=== PATIENT | male | born 1975 | race Caucasian/White ===

== ENCOUNTER → 2017-09-24 | Outpatient (CLI) | payer OTHER ==
[2017-09-24 12:38] LABS: BASO # 0.1 10^3/uL (0.0-0.2); BASO % 0.8 % (0.0-1.0); EOS # 0.3 10^3/uL (0.0-0.50); EOS % 3.9 % (0.0-3.0); HEMATOCRIT 44.6 % (42.0-52.0); HEMOGLOBIN 14.7 g/dl (13.5-17.5); IMMATURE GRANULOCYTE % 0.2 % (0-3.0); LYMPH % 34.3 % (24.0-44.0); MEAN CORPUSCULAR HEMOGLOBIN 28.7 pg (27.0-33.0); MEAN CORPUSCULAR VOLUME 87.1 fl (80.0-96.0); MONO # 0.6 10^3/uL (0.0-0.8); MONO % 6.3 % (0.0-5.0); NEUTROPHILS # 4.7 10^3/uL (1.8-7.7); NEUTROPHILS % 54.5 % (36.0-66.0); PLATELET COUNT, AUTOMATED 290 10^3/uL (150-450); RED BLOOD COUNT 5.12 10^6/uL (4.30-6.10); RED CELL DISTRIBUTION WIDTH 12.4 % (11.5-14.5); WHITE BLOOD COUNT 8.7 10^3/uL (4.0-10.0)
[2017-09-24 13:04] LABS: ALBUMIN 3.9 GM/DL (3.2-5.2); ALBUMIN/GLOBULIN RATIO 1.18 (1.00-1.93); ALKALINE PHOSPHATASE 82 U/L (45-117); ALT/SGPT 128 U/L (12-78); ANION GAP 6 MEQ/L (8-16); AST/SGOT 53 U/L (7-37); BILIRUBIN,TOTAL 0.7 MG/DL (0.2-1.0); BLOOD UREA NITROGEN 10 MG/DL (7-18); CALCIUM LEVEL 8.7 MG/DL (8.5-10.1); CARBON DIOXIDE LEVEL 29 MEQ/L (21-32); CHLORIDE LEVEL 105 MEQ/L (98-107); CHOLESTEROL LEVEL 227 MG/DL (<200); GLOMERULAR FILTRATION RATE > 60.0 (>60); GLUCOSE, FASTING 109 MG/DL (70-100); HDL CHOLESTEROL 39 MG/DL (>40); LDL CHOLESTEROL 160.4 MG/DL (<100); NON-HDL-C 188 MG/DL; POTASSIUM SERUM 4.5 MEQ/L (3.5-5.1); SODIUM LEVEL 140 MEQ/L (136-145); TOTAL PROTEIN 7.2 GM/DL (6.4-8.2); TRIGLYCERIDES LEVEL 138 MG/DL (<150)
== END ==
LOC: M WUC 09:44
DX: I10 Essential (primary) hypertension (principal); E78.00 Pure hypercholesterolemia, unspecified
CPT/HCPCS: 80053

== ENCOUNTER → 2018-03-26 | Outpatient (CLI) | payer OTHER ==
[2018-03-26 13:35] LABS: ALBUMIN 3.7 GM/DL (3.2-5.2); ALBUMIN/GLOBULIN RATIO 1.06 (1.00-1.93); ALKALINE PHOSPHATASE 82 U/L (45-117); ALT/SGPT 79 U/L (12-78); ANION GAP 9 MEQ/L (8-16); AST/SGOT 36 U/L (7-37); BILIRUBIN,TOTAL 0.7 MG/DL (0.2-1.0); BLOOD UREA NITROGEN 12 MG/DL (7-18); CALCIUM LEVEL 8.2 MG/DL (8.5-10.1); CARBON DIOXIDE LEVEL 27 MEQ/L (21-32); CHLORIDE LEVEL 103 MEQ/L (98-107); CHOLESTEROL LEVEL 242 MG/DL (<200); CHOLESTEROL RISK RATIO 5.627 (<5); CREATININE FOR GFR 0.78 MG/DL (0.70-1.30); GLOMERULAR FILTRATION RATE > 60.0 (>60); GLUCOSE, FASTING 108 MG/DL (70-100); HDL CHOLESTEROL 43 MG/DL (>40); LDL CHOLESTEROL 178 MG/DL (<100); NON-HDL-C 199 MG/DL; POTASSIUM SERUM 4.6 MEQ/L (3.5-5.1); SODIUM LEVEL 139 MEQ/L (136-145); TOTAL PROTEIN 7.2 GM/DL (6.4-8.2); TRIGLYCERIDES LEVEL 103 MG/DL (<150)
== END ==
LOC: M WUC 08:31
DX: E78.00 Pure hypercholesterolemia, unspecified (principal); I10 Essential (primary) hypertension
CPT/HCPCS: 80053

== ENCOUNTER → 2018-04-09 | Outpatient (CLI) | payer OTHER | LOC: M WUC 17:07 | DX: I10 Essential (primary) hypertension (principal) ==

== ENCOUNTER → 2019-03-08 | Outpatient (CLI) | payer OTHER ==
[2019-03-08 09:52] LABS: BASO # 0.1 10^3/uL (0.0-0.2); BASO % 0.6 % (0.0-1.0); EOS # 0.3 10^3/uL (0.0-0.5); EOS % 4.1 % (0.0-3.0); HEMATOCRIT 46.4 % (42.0-52.0); HEMOGLOBIN 15.3 g/dl (13.5-17.5); LYMPH # 2.5 10^3/uL (1.5-5.0); LYMPH % 32.1 % (24.0-44.0); MEAN CORPUSCULAR HEMOGLOBIN 29.7 pg (27.0-33.0); MEAN CORPUSCULAR VOLUME 90.1 fl (80.0-96.0); MONO # 0.5 10^3/uL (0.0-0.8); NEUTROPHILS # 4.3 10^3/uL (1.5-8.5); NEUTROPHILS % 55.9 % (36.0-66.0); PLATELET COUNT, AUTOMATED 254 10^3/uL (150-450); RED BLOOD COUNT 5.15 10^6/uL (4.30-6.10); WHITE BLOOD COUNT 7.7 10^3/uL (4.0-10.0)
[2019-03-08 10:29] LABS: HEMOGLOBIN A1c 5.7 %
[2019-03-08 10:45] LABS: ALBUMIN 3.8 GM/DL (3.2-5.2); ALT/SGPT 106 U/L (12-78); BILIRUBIN,TOTAL 0.6 MG/DL (0.2-1.0); BLOOD UREA NITROGEN 13 MG/DL (7-18); CALCIUM LEVEL 8.7 MG/DL (8.5-10.1); CARBON DIOXIDE LEVEL 32 MEQ/L (21-32); CHLORIDE LEVEL 104 MEQ/L (98-107); CHOLESTEROL LEVEL 231 MG/DL (<200); CREATININE FOR GFR 0.84 MG/DL (0.70-1.30); GLOMERULAR FILTRATION RATE > 60.0 (>60); GLUCOSE, FASTING 96 MG/DL (70-100); HDL CHOLESTEROL 44 MG/DL (>40); LDL CHOLESTEROL 158 MG/DL (<100); NON-HDL-C 187 MG/DL; POTASSIUM SERUM 4.2 MEQ/L (3.5-5.1); SODIUM LEVEL 140 MEQ/L (136-145); THYROID STIMULATING HORMONE 0.526 uIU/ML (0.358-3.740); TOTAL PROTEIN 6.9 GM/DL (6.4-8.2); TRIGLYCERIDES LEVEL 143 MG/DL (<150)
== END ==
LOC: M WUC 08:18
PROVIDERS: ATTEND Physician Assistant Medical
DX: I10 Essential (primary) hypertension (principal); E78.2 Mixed hyperlipidemia; E66.9 Obesity, unspecified; Z12.5 Encounter for screening for malignant neoplasm of prostate
CPT/HCPCS: 36415; 80053; 80061; 83036; 84439; 84443; 85025; G0103

== ENCOUNTER → 2019-03-31 | Outpatient (CLI) | payer OTHER ==
[2019-04-01 11:06] LABS: HEPATITIS A ANTIBODY IGM NEGATIVE (NEGATIVE); HEPATITIS B SURFACE ANTIBODY NEGATIVE (POSITIVE); HEPATITIS B SURFACE ANTIGEN NEGATIVE (NEGATIVE)
--- NOTE | 2019-04-01 13:20 | REP ---
Clinical: Elevated liver function tests. Technique: Real time vega scale ultrasound examination using curved array transducer. Findings: Liver is echogenic with decreased through transmission suggesting fatty infiltration. No focal hepatic lesion identified. The pancreas is incompletely evaluated due to interposed bowel gas but visualized portions appear normal. Gallbladder demonstrates multiple gallstones and layering sludge. No gallbladder wall thickening or pericholecystic fluid appreciated. Common bile duct is upper limits of normal and 7 mm. Right kidney is normal in reniform shape without hydronephrosis and measures 13.4 x 6.8 x 5.6 cm. No ascites. Impression: 1. Hepatic steatosis. 2. Cholelithiasis. Electronically Signed by Hakeem Soares MD 04/01/2019 01:11 P
[2019-04-06 08:19] LABS: HEPATITIS C QUANTITATION HCV Not Detected IU/mL (.)
== END ==
LOC: M RAD 07:48
PROVIDERS: ATTEND Physician Assistant Medical
DX: R94.5 Abnormal results of liver function studies (principal)

== ENCOUNTER → 2019-09-19 | Outpatient (REF) | payer OTHER ==
[2019-09-19 10:02] LABS: BASO # 0.1 10^3/uL (0.0-0.2); BASO % 0.8 % (0.0-1.0); EOS # 0.5 10^3/uL (0.0-0.5); EOS % 5.8 % (0.0-3.0); HEMATOCRIT 44.5 % (42.0-52.0); HEMOGLOBIN 15.2 g/dl (13.5-17.5); LYMPH # 2.6 10^3/uL (1.5-5.0); LYMPH % 33.8 % (24.0-44.0); MEAN CORPUSCULAR HEMOGLOBIN 30.2 pg (27.0-33.0); MEAN CORPUSCULAR HGB CONC 34.2 g/dl (32.0-36.5); MEAN CORPUSCULAR VOLUME 88.5 fl (80.0-96.0); MONO # 0.4 10^3/uL (0.0-0.8); MONO % 5.7 % (0.0-5.0); NEUTROPHILS # 4.2 10^3/uL (1.5-8.5); NEUTROPHILS % 53.5 % (36.0-66.0); PLATELET COUNT, AUTOMATED 276 10^3/uL (150-450); RED BLOOD COUNT 5.03 10^6/uL (4.30-6.10); WHITE BLOOD COUNT 7.8 10^3/uL (4.0-10.0)
[2019-09-19 10:26] LABS: ALBUMIN 3.8 GM/DL (3.2-5.2); ALT/SGPT 76 U/L (12-78); BILIRUBIN,TOTAL 0.6 MG/DL (0.2-1.0); BLOOD UREA NITROGEN 11 MG/DL (7-18); CALCIUM LEVEL 8.5 MG/DL (8.5-10.1); CARBON DIOXIDE LEVEL 26 MEQ/L (21-32); CHLORIDE LEVEL 104 MEQ/L (98-107); CREATININE FOR GFR 0.78 MG/DL (0.70-1.30); GLOMERULAR FILTRATION RATE > 60.0 (>60); GLUCOSE, FASTING 101 MG/DL (70-100); POTASSIUM SERUM 4.3 MEQ/L (3.5-5.1); SODIUM LEVEL 140 MEQ/L (136-145); TOTAL PROTEIN 7.1 GM/DL (6.4-8.2)
== END ==
LOC: M SFHCPLAZ 08:16
PROVIDERS: ATTEND Physician Assistant Medical
DX: R94.5 Abnormal results of liver function studies (principal); I10 Essential (primary) hypertension

== ENCOUNTER → 2020-11-15 | Outpatient (CLI) | payer OTHER ==
--- NOTE | 2020-11-15 10:08 | REP ---
INDICATION: CONTUSION COMPARISON: None. TECHNIQUE: Frontal view of the chest with multiple views of the right hemithorax. Five total views FINDINGS: Frontal view of the chest demonstrates no acute cardiopulmonary process, contusion, effusion, or pneumothorax. Nondisplaced posterior right 10th rib fracture. Remainder of the examination is essentially normal.. IMPRESSION: Nondisplaced posterior right 10th rib fracture. <Electronically signed by Hakeem Soares > 11/15/20 1000
== END ==
LOC: M WUC 09:22
PROVIDERS: ATTEND Physician Assistant
DX: S20.221A Contusion of right back wall of thorax, initial encounter (principal); W18.30XA Fall on same level, unspecified, initial encounter; Y92.009 Unspecified place in unspecified non-institutional (private) residence as the place of occurrence of the external cause

== ENCOUNTER → 2020-11-17 | Outpatient (CLI) | payer BC ==
[2020-11-17 10:58] LABS: BASO # 0.1 10^3/uL (0.0-0.2); BASO % 0.6 % (0.0-1.0); EOS # 0.5 10^3/uL (0.0-0.5); EOS % 4.4 % (0.0-3.0); HEMOGLOBIN 14.7 g/dl (13.5-17.5); LYMPH % 26.8 % (24.0-44.0); MEAN CORPUSCULAR HEMOGLOBIN 29.3 pg (27.0-33.0); MEAN CORPUSCULAR HGB CONC 32.7 g/dl (32.0-36.5); MEAN CORPUSCULAR VOLUME 89.6 fl (80.0-96.0); MONO # 0.7 10^3/uL (0.0-0.8); MONO % 6.4 % (2.0-8.0); NEUTROPHILS # 6.8 10^3/uL (1.5-8.5); NEUTROPHILS % 61.4 % (36.0-66.0); PLATELET COUNT, AUTOMATED 291 10^3/uL (150-450); RED BLOOD COUNT 5.02 10^6/uL (4.30-6.10)
[2020-11-17 11:39] LABS: ALBUMIN 3.8 GM/DL (3.2-5.2); ALT/SGPT 72 U/L (12-78); BILIRUBIN,TOTAL 0.5 MG/DL (0.2-1.0); BLOOD UREA NITROGEN 10 MG/DL (7-18); CALCIUM LEVEL 8.7 MG/DL (8.5-10.1); CARBON DIOXIDE LEVEL 28 MEQ/L (21-32); CHLORIDE LEVEL 103 MEQ/L (98-107); CHOLESTEROL LEVEL 199 MG/DL (<200); CHOLESTEROL RISK RATIO 4.853 (<5); CREATININE FOR GFR 0.66 MG/DL (0.70-1.30); GLOMERULAR FILTRATION RATE > 60.0 (>60); GLUCOSE, FASTING 94 MG/DL (70-100); HDL CHOLESTEROL 41 MG/DL (>40); LDL CHOLESTEROL 132 MG/DL (<100); NON-HDL-C 158 MG/DL; NT-PRO BNP 173 PG/ML (<125); POTASSIUM SERUM 4.6 MEQ/L (3.5-5.1); SODIUM LEVEL 137 MEQ/L (136-145); THYROID STIMULATING HORMONE 0.265 uIU/ML (0.358-3.740); TOTAL PROTEIN 7.2 GM/DL (6.4-8.2); TRIGLYCERIDES LEVEL 129 MG/DL (<150)
[2020-11-17 11:53] LABS: HEMOGLOBIN A1c 5.9 %
== END ==
LOC: M LAB 09:25
PROVIDERS: ATTEND Physician Assistant Medical
DX: E78.2 Mixed hyperlipidemia (principal); E66.9 Obesity, unspecified; R94.5 Abnormal results of liver function studies; R60.9 Edema, unspecified; I10 Essential (primary) hypertension

== ENCOUNTER 2021-05-12 01:02 | Emergency (ER) | payer BC ==
[~2021-05-12] VITALS: Ht 182.9 cm; Wt 131.8 kg
--- OUTSIDE RECORDS SUMMARY | 2021-05-12 01:09 | CCD ---
Author Author [facility] Organization [facility] Address Unknown Phone Unavailable Care Team Providers [employer] Name Role Phone Umesh Krystle Unavailable PROBLEMS Type Condition ICD9-CM Code [id number] Code Onset Dates Condition S tatus W/U Status Risk SNOMED Code Notes Problem Body mass index (BMI) of 38.0-38.9 in adult Z68.38 Active confirmed 738577875 Problem Obesity, unspecified E66.9 Active confirmed 395327560 Problem Elevated LFTs R94.5 Active confirmed 889064 001 Problem Colon cancer screening Z12.11 Active confirmed 682474157 Problem Prostate cancer screening Z12.5 Active confirmed 106808913 Problem Essential hypertension I10 Active confirmed 45512515 Problem Mixed hyperlipidemia E78.2 Active confirmed 197903202 ALLERGIES Allergen (clinical drug ingredient) Drug/Non Drug Allergy do cumented on EMR Reaction Allergy Type Onset Date Status atorvastatin Atorvastatin Calcium([facility] Code:[address]-77) Ang ioedema Drug Allergy Active ENCOUNTERS from 1974 to 2021-02-14 Encounter Location Date Provider Diagnosis [address] [phone] [place] [address] 08 Feb, 2021 Krystle Calvo Essential hypertension I10 IMMUNIZATIONS No Information SOCIAL HISTORY Tobacco Use: Social History Observation Description Date Details (start date - stop date) Former Smoker Sex Assigned At : Social History Observation Description Sex Assigned At Unknown Education: Question Answer Notes Level of Education: Not finished High School Audit Question Answer Notes Total Score: 8 Interpretation: Simple Advice Language: Question Answer Notes Languages spoken: Taiwanese Gnosticist: Question Answer Notes Gnosticist 33 None Sexual Hx: Question Answer Notes Had sex in the last 12 months (vaginal, oral, or anal)? Yes Have you ever had an STD? No with Women only Use protection? No Drug and Alcohol Question Answer Notes Total Score: 0 Interpretation: No problems reported Alcohol Screening: Question Answer Notes Did you have a drink containing alcohol in the past year? Ye s Points 1 Interpretation Negative How often did you have six or more drinks on one occas ion in the past year? Never (0 points) How many drinks did you have on a typica l day when you were drinking in the past year? 1 or 2 (0 points) How often did you have a drink containing alcohol in t he past year? Monthly or less (1 point) Tobacco Use: Question Answer Notes Are you a: former smoker How long has it been since you last smoked? > 10 years REASON FOR REFERRAL No Information VITAL SIGNS No information MEDICATIONS Medication SIG (Take, Route, Frequency, Duration) Notes Start Da te End Date Status Atenolol 25 MG 1 tablet Orally at bedtime Active Zetia 10 MG 1 tablet Orally Once a day for 90 days Active Lisinopril 40 MG 1 tablet Orally Once a day for 90 days Jan, Active PROCEDURES No Information RESULTS No Results REASON FOR VISIT lisinopril MEDICAL (GENERAL) HISTORY Type Description Date Medical History hypertension, essential Medical History hyperlipidemia 2B Surgical History Lt knee torn meniscus 2015 Goals Section No Information Health Concerns No Information MEDICAL EQUIPMENT No Information MENTAL STATUS No Information FUNCTIONAL STATUS No Information ASSESSMENTS Encounter Date Diagnosis Assessment Notes Treatment Notes Treatm ent Clinical Notes Feb, Essential hypertension (ICD-10 - I10) PLAN OF TREATMENT Medication Medication Name Sig Start Date Stop Date Atenolol 25 MG 1 tablet Orally at bedtime Lisinopril 40 MG 1 tablet Orally Once a day for 90 days Jan, Zetia 10 MG 1 tablet Orally Once a day for 90 days Next Appt Details Provider Name:Krystle Calvo, 917 10:30:00 AM, [address] [facility], , [place], [address], Insurance Providers Payer Name Payer Address Payer Phone Insured Name Patient Relati onship to Insured Coverage Start Date Coverage End Date [facility] FEDERAL [address] [address] [facility] [id number] LE[address] FIELDS self
--- OUTSIDE RECORDS SUMMARY | 2021-05-12 01:09 | CCD | Continuity of Care Document ---
Author Author Jonah COLUNGA Organization Unknown Address [address] [place] [address] [place] [address] Phone [phone] Care Team Providers Care Kettle Operator Name Role Phone Krystle Calvo [phone] Problems Description No Information Available Social History Type Date Description Comments Sex Unknown ETOH Use Occasionally consumes alcohol Tobacco Use Start: Unknown End: Unknown Patient is a former smoker quit at 17 years old Tobacco Use Start: Unknown The patient has never vaped Allergies and adverse reactions Description No Known Drug Allergies Medications Active Medications SIG Qnty Indications Ordering Provide r Date Lisinopril Unknown Amlodipine Besylate Unknown Atenolol Unknown Ezetimibe Unknown Tylenol 9:00 am today Unknown Vicks Dayquil Cold & Flu Unknown Immunizations Description No Information Available Vital Signs Date Vital Result Comment 11/14/2020 5:35pm BP Systolic 137 mmHg BP Diastolic 89 mmHg Heart Rate 87 /min Respiratory Rate 15 /min O2 % BldC Oximetry 95 % Body Temperature 98.7 F Weight 280.00 lb Height 72 inches 6'0" BMI (Body Mass Index) 38.0 kg/m2 Results Description No Information Available Procedures Date Code Description Status 11/14/2020 81406 Office/Outpatient New Low MDM 30 -44 Minutes Completed Medical Devices Description No Information Available Encounters Type Date Location Provider Dx Diagnosis Office Visit 11/14/2020 5:05p Main Office Jluis Fishman S2 0.221A Contusion of right back wall of thorax, initial encounter Assessments Date Code Description Provider 03/29/2021 U07.1 Covid-19 LOUISE Watson 11/14/2020 S20.221A Contusion of right back wall of thorax, initial encounter Jluis Fishman Plan of Treatment No Information Available Functional Status Description No Information Available Mental Status Description No Information Available Referrals Description No Information Available
--- OUTSIDE RECORDS SUMMARY | 2021-05-12 01:09 | CCD ---
Author Author [facility] Organization [facility] Address Unknown Phone Unavailable Care Team Providers Care Event Management Consultant Name Role Phone Krystle Calvo Unavailable PROBLEMS Type Condition ICD9-CM Code BST84-FB Code Onset Dates Condition S tatus W/U Status Risk SNOMED Code Notes Problem Body mass index (BMI) of 38.0-38.9 in adult Z68.38 Active confirmed 816777127 Problem Obesity, unspecified E66.9 Active confirmed 174159315 Problem Elevated LFTs R94.5 Active confirmed 172618 001 Problem Colon cancer screening Z12.11 Active confirmed 256754251 Problem Prostate cancer screening Z12.5 Active confirmed 097324049 Problem Essential hypertension I10 Active confirmed 36590565 Problem Mixed hyperlipidemia E78.2 Active confirmed 388148477 ALLERGIES Allergen (clinical drug ingredient) Drug/Non Drug Allergy do cumented on EMR Reaction Allergy Type Onset Date Status atorvastatin Atorvastatin Calcium([facility] Code:[address]-48) Ang ioedema Drug Allergy Active ENCOUNTERS from 1974 to 2021-03-25 Encounter Location Date Provider Diagnosis [address] [phone] [place] [address] 18 Mar, 2021 Krystle Umesh Essential hypertension I10 IMMUNIZATIONS Vaccine Route Administration Date Status COVID-19 dose #2 given elsewhere Unspecified Unknown Feb Administered COVID-19 dose #1 given elsewhere Unspecified Unknown Feb Administered SOCIAL HISTORY Tobacco Use: Social History Observation Description Date Details (start date - stop date) Former Smoker Sex Assigned At : Social History Observation Description Sex Assigned At Unknown Education: Question Answer Notes Level of Education: Not finished High School Audit Question Answer Notes Total Score: 1 Interpretation: Alcohol Education Language: Question Answer Notes Languages spoken: Spanish Episcopal: Question Answer Notes Episcopal 33 None Sexual Hx: Question Answer Notes [...] Notes Start Da te End Date Status Lisinopril 40 MG 1 tablet Orally Once a day for 30 day(s) Active Atenolol 25 MG 30 Orally at bedtime for 90 days Active Zetia 10 MG 1 tablet Orally Once a day for 90 days Active PROCEDURES No Information RESULTS No Results REASON FOR VISIT refill MEDICAL (GENERAL) HISTORY Type Description Date Medical History hypertension, essential Medical History hyperlipidemia 2B Surgical History Lt knee torn meniscus 2015 Goals Section No Information Health Concerns No Information MEDICAL EQUIPMENT No Information MENTAL STATUS No Information FUNCTIONAL STATUS No Information ASSESSMENTS Encounter Date Diagnosis Assessment Notes Treatment Notes Treatm ent Clinical Notes Mar, Essential hypertension (ICD-10 - I10) PLAN OF TREATMENT Medication Medication Name Sig Start Date Stop Date Atenolol 25 MG 30 Orally at bedtime for 90 days Lisinopril 40 MG 1 tablet Orally Once a day for 30 day(s) Next Appt Details Provider Name:Krystle Calvo, - 07:30:00 AM, [address] [facility], , [place], [address], Insurance Providers Payer Name Payer Address Payer Phone Insured Name Patient Relati onship to Insured Coverage Start Date Coverage End Date [facility] FEDERAL [address] [address] [facility] [id number] LE[address] FIELDS self
--- OUTSIDE RECORDS SUMMARY | 2021-05-12 01:09 | CCD ---
Author Author [facility] Organization [facility] Address Unknown Phone Unavailable Care Team Providers Care Sap Senior Developer Name Role Phone Krystle Calvo Unavailable PROBLEMS Type Condition ICD9-CM Code LLV10-JB Code Onset Dates Condition S tatus W/U Status Risk SNOMED Code Notes Problem Body mass index (BMI) of 38.0-38.9 in adult Z68.38 Active confirmed 301393722 Problem Obesity, unspecified E66.9 Active confirmed 753644191 Problem Elevated LFTs R94.5 Active confirmed 846877 001 Problem Colon cancer screening Z12.11 Active confirmed 130687622 Problem Prostate cancer screening Z12.5 Active confirmed 917063871 Problem Essential hypertension I10 Active confirmed 14065970 Problem Mixed hyperlipidemia E78.2 Active confirmed 196644432 ALLERGIES Allergen (clinical drug ingredient) Drug/Non Drug Allergy do cumented on EMR Reaction Allergy Type Onset Date Status atorvastatin Atorvastatin Calcium([facility] Code:[address]-69) Ang ioedema Drug Allergy Active ENCOUNTERS from 1974 to 2021-02-27 Encounter Location Date Provider Diagnosis [address] [phone] [place] [address] 17 Feb, 2021 Krystle Delonmaggykera Essential hypertension I10 ; Edema, unspecified type R60.9 ; Obesity, unspecified E66.9 and Prostate cancer screening Z12.5 IMMUNIZATIONS Vaccine Route Administration Date Status COVID-19 [...] Education Language: Question Answer Notes Languages spoken: Khmer Taoism: Question Answer Notes Taoism 33 None Sexual Hx: Question Answer Notes [...] REASON FOR REFERRAL No Information VITAL SIGNS Weight 296 lbs Feb, Height 72 in Feb, BMI 40.14 kg/m2 Feb, Heart Rate 88 /min Feb, Respiratory Rate 20 /min Feb, Temperature 97.9 degrees Fahrenheit Feb, Oximetry 97 Feb, Blood pressure systolic 110 mm Hg Feb, Blood pressure diastolic 80 mm Hg Feb, MEDICATIONS Medication SIG (Take, Route, Frequency, Duration) Notes Start Da te End Date Status Atenolol 25 MG 30 Orally at bedtime for 30 Days Active Lisinopril 40 MG 1 tablet Orally Once a day for 30 day(s) Active Zetia 10 MG 1 tablet Orally Once a day for 90 days Active PROCEDURES No Information RESULTS No Results REASON FOR VISIT 3 Weeks f/u for bp MEDICAL (GENERAL) HISTORY Type Description Date Medical History hypertension, essential Medical History hyperlipidemia 2B Surgical History Lt knee torn meniscus 2015 Goals Section No Information Health Concerns No Information MEDICAL EQUIPMENT No Information MENTAL STATUS No Information FUNCTIONAL STATUS No Information ASSESSMENTS Encounter Date Diagnosis Assessment Notes Treatment Notes Treatm ent Clinical Notes Feb, Essential hypertension (ICD-10 - I10) Controlled, on lisinopril to 40mg & cont. atenolol 25mg qam 01/2021 stopped amlod to 2.5 mg, salt restriction Feb, Edema, unspecified type (ICD-10 - R60.9) stopped amlod. & resolved Feb, Obesity, unspecified (ICD-10 - E66.9) wt. 296 lb.s/BMI 40 Feb, Prostate cancer screening (ICD-10 - Z12.5) 03/2019 psa 0.35 Feb, Other 30" chart revie w, orders/plans, h&p PLAN OF TREATMENT Medication Medication Name Sig Start Date Stop Date Lisinopril 40 MG 1 tablet Orally Once a day for 30 day(s) Atenolol 25 MG 30 Orally at bedtime for 30 Days Treatment Notes Assessment Notes Clinical Notes Essential hypertension Controlled, on li sinopril to 40mg & cont. atenolol 25mg qa stopped amlod to 2.5 mg,salt restriction Edema, unspecified type stopped amlod. & resolved Obesity, unspecified wt. 296 lb.s/BMI 40 Prostate cancer screening 03/2019 psa 0. 35 Future Test Test Name Order Date CBC with Differential [id number] Comprehensive Metabolic Profile (CMP) [id number] NT-PRO BNP [id number] PSA SCREENING [id number] Next Appt Details 4 Months cSS Reason: Provider Name:Krystle Calvo, 06-25 07:30:00 AM, [address] [facility], , [place], [address], Insurance Providers Payer Name Payer Address Payer Phone Insured Name Patient Relati onship to Insured Coverage Start Date Coverage End Date [facility] FED[facility] [address] [address] [facility] [address] LEOL[place] FIELDS self
--- OUTSIDE RECORDS SUMMARY | 2021-05-12 01:09 | CCD ---
Author Author [facility] Organization [facility] Address Unknown Phone Unavailable Care Team Providers Care Executive Meeting Manager Name Role Phone SRI HOOKS PA Unavailable Unavailable JESSEE, SRI PA Unavailable Unavailable JESSEE, SRI PA Unavailable Unavailable JESSEE, SRI PA Unavailable Unavailable JESSEE, SRI PA Unavailable Unavailable JESSEE, SRI PA Unavailable Unavailable JESSEE, SRI PA Unavailable Unavailable JESSEE, SRI PA Unavailable Unavailable JESSEE, SRI PA Unavailable Unavailable JESSEE, SRI PA Unavailable Unavailable JESSEE, SRI PA Unavailable Unavailable JESSEE, SRI PA Unavailable Unavailable JESSEE, SRI PA Unavailable Unavailable JESSEE, SRI PA Unavailable Unavailable JESSEE, SRI PA Unavailable Unavailable JESSEE, SRI PA Unavailable Unavailable JESSEE, SRI PA Unavailable Unavailable JESSEE, SRI PA Unavailable Unavailable JESSEE, SRI PA Unavailable Unavailable JESSEE, SRI PA Unavailable Unavailable JESSEE, SRI PA Unavailable Unavailable JESSEE, SRI PA Unavailable Unavailable JESSEE, SRI PA Unavailable Unavailable JESSEE, SRI PA Unavailable Unavailable JESSEE, SRI PA Unavailable Unavailable JESSEE, SRI PA Unavailable Unavailable JESSEE, SRI PA Unavailable Unavailable JESSEE, SRI PA Unavailable Unavailable JESSEE, SRI PA Unavailable Unavailable JESSEE, SRI PA Unavailable Unavailable JESSEE, SRI PA Unavailable Unavailable JESSEE, SRI PA Unavailable Unavailable JESSEE, SRI PA Unavailable Unavailable JESSEE, SRI PA Unavailable Unavailable JESSEE, SRI PA Unavailable Unavailable JESSEE, SRI PA Unavailable Unavailable Re-disclosure Warning The records that you are about to access may contain information from federally-assisted alcohol or drug abuse programs. If such information is present, then the following federally mandated warning applies: This information has been disclosed to you from records protected by federal confidentiality rules (42 CFR part 2). The federal rules prohibit you from making any further disclosure of this information unless further disclosure is expressly permitted by the written consent of the person to whom it pertains or as otherwise permitted by 42 CFR part 2. A general authorization for the release of medical or other information is NOT sufficient for this purpose. The Federal rules restrict any use of the information to criminally investigate or prosecute any alcohol or drug abuse patient.The records that you are about to access may contain highly sensitive health information, the redisclosure of which is protected by Article 27-F of the [facility] Public Health law. If you continue you may have access to information: Regarding HIV / AIDS; Provided by facilities licensed or operated by the [facility] Office of Mental Health; or Provided by the [facility] Office for People With Developmental Disabilities. If such information is present, then the following [facility] mandated warning applies: This information has been disclosed to you from confidential records which are protected by state law. State law prohibits you from making any further disclosure of this information without the specific written consent of the person to whom it pertains, or as otherwise permitted by law. Any unauthorized further disclosure in violation of state law may result in a fine or intermediate sentence or both. A general authorization for the release of medical or other information is NOT sufficient authorization for further disc losure. Encounters Encounter Providers Location Date Indications Data Source(s ) Unknown [address] [facility] [address] 03/25/2021 12:00:00 AM EDT eCW1 ([facility]) [place]patient [address] [facility] [address] 02/22/2021 12:00:00 AM EDT eCW1 ([facility]) [place] [address] [facility] [address] 02/13/2021 12:00:00 AM EDT eCW1 ([facility]) [place] [address] [facility] [address] 02/07/2021 12:00:00 AM EDT eCW1 ([facility]) [place] [address] [facility] [address] 01/11/2021 12:00:00 AM EDT eCW1 ([facility]) [place] [address] [facility] [address] 12/31/2020 12:00:00 AM EDT eCW1 ([facility]) [place] [address] [facility] [address] 12/19/2020 12:00:00 AM EDT eCW1 ([facility]) [place] [address] [facility] [address] 11/23/2020 12:00:00 AM EDT eCW1 ([facility]) [place] [address] [facility] [address] 11/21/2020 12:00:00 AM EDT eCW1 ([facility]) [place] [address] [facility] [place] [address] 11/15/2020 12:00:00 AM EDT eCW1 ([facility]) Outpatient Attender: SRI rodriguez 11/14/2020 05:05:00 PM EDT MEDENT ([facility]) [place] [address] [facility] [place] [address] 08/30/2020 12:00:00 AM EDT eCW1 ([facility]) [place] [address] [facility] [place] [address] 06/29/2020 12:00:00 AM EST eCW1 ([facility]) [place] [address] [facility] [address] 05/30/2020 12:00:00 AM EST eCW1 ([facility]) [place] [address] [facility] [address] 04/11/2020 12:00:00 AM EST eCW1 ([facility]) [facility] [address] [facility] [address] 03/27/2020 12:00:00 AM EDT eCW1 ([facility]) Immunizations Vaccine Date Status Description Data Source(s) COVID-19 dose #2 given elsewhere Unspecified 02/22/2021 10:2 7:00 AM EDT completed eCW1 ([facility]) COVID-19 dose #2 given elsewhere Unspecified 02/22/2021 10:2 7:00 AM EDT completed eCW1 ([facility]) COVID-19 dose #1 given elsewhere Unspecified 02/22/2021 10:2 6:00 AM EDT completed eCW1 ([facility]) COVID-19 dose #1 given elsewhere Unspecified 02/22/2021 10:2 6:00 AM EDT completed eCW1 ([facility]) Medications Medication Brand Name Start Date Product Form Dose Route Admi nistrative Instructions Pharmacy Instructions Status Indications Reaction Description Data Source(s) Lisinopril 40 MG Oral Tablet Lisinopril 40 MG 01/11/2021 12:00:00 A M EDT 1.0 {tablet} active Lisinopril 40 MG [facility] Lisinopril 40 MG Oral Tablet Lisinopril 40 MG 01/11/2021 12:00:00 A M EDT 1.0 {tablet} active Lisinopril 40 MG [facility]CW[facility] ( [facility]) Lisinopril 40 MG Oral Tablet Lisinopril 40 MG 01/11/2021 12:00:00 A M EDT 1.0 {tablet} active Lisinopril 40 MG eCW1 ( [facility]) Insurance Providers Payer name Policy type / Coverage type Policy ID Covered alliance party ID Covered alliance party's relationship to leahy Policy [place] Plan Information [employer] [place] [id number] [place] [id number] [employer] [place] [id number] SP [id number] [employer] [place] [id number] HU2 [id number] [employer] [place] [id number] WI2 [id number] [employer] [place] O [id number] S [id number] [employer] [place] [id number] SP [id number] SELF PAY UNAVAILABLE SP UNAVAILA BLE [facility] [employer] PROGRAM [id number] SP [id number] [facility] [employer] [id number] SP [id number] Problems, Conditions, and Diagnoses No Information Surgeries/Procedures Procedure Description Date Indications Data Source(s) OFFICE OUTPATIENT NEW 30 MINUTES 11/14/2020 12:00:00 A M EDT MEDENT ([facility], [facility]) Results ID Date Data Source [id number] 03/30/2021 12:00:00 AM EDT [facility] Name Value Range Interpretation Code Description Data Loretta rce(s) Supporting Document(s) SARS-CoV2 Rapid Antigen Positive [facility] This lab was reported by [facility]. Procedure Social History Code Duration Value Status Description Data Source(s ) Smoking 02/22/2021 12:00:00 AM EDT Former Smoker completed Former Smoker [facility]) Smoking 02/22/2021 12:00:00 AM EDT Former Smoker completed Former Smoker eCW1 ([facility]) Smoking 01/11/2021 12:00:00 AM EDT Former Smoker completed Former Smoker eCW1 ([facility]) Smoking 01/11/2021 12:00:00 AM EDT Former Smoker completed Former Smoker eCW1 ([facility]) Smoking 01/11/2021 12:00:00 AM EDT Former Smoker completed Former Smoker eCW1 ([facility]) Smoking 11/23/2020 12:00:00 AM EDT Former Smoker completed Former Smoker eCW1 ([facility]) Smoking 11/23/2020 12:00:00 AM EDT Former Smoker completed Former Smoker eCW1 ([facility]) Smoking 11/23/2020 12:00:00 AM EDT Former Smoker completed Former Smoker eCW1 [facility]) Vital Signs ID Date Data Source UNK Name Value Range Interpretation Code Description Data Source(s) Body weight 296 [lb_av] 296 [lb_av] eCW1 ([facility]) Body height 72 [in_i] 72 [in_i] eCW1 ([facility]) Body mass index (BMI) [Ratio] 40.14 kg/m2 40.14 kg/m2 eCW1 [facility]) Heart rate 88 /min 88 /min eCW1 ([facility]) Respiratory rate 20 /min 20 /min eCW1 ([facility]) Body temperature 97.9 [degF] 97.9 [degF] eCW1 ( [facility]) Systolic blood pressure 110 mm[Hg] 110 mm[Hg] e CW1 ([facility]) Diastolic blood pressure 80 mm[Hg] 80 mm[Hg] eCW1 [facility]) Body height 72 [in_i] 72 [in_i] eCW1 ([facility]) Body mass index (BMI) [Ratio] 40.95 kg/m2 40.95 kg/m2 eCW1 ([facility]) Heart rate 79 /min 79 /min eCW1 ([facility]) Respiratory rate 18 /min 18 /min eCW1 ([facility]) Body temperature 97.9 [degF] 97.9 [degF] eCW1 ( [facility]) Systolic blood pressure 131 mm[Hg] 131 mm[Hg] e CW1 ([facility]) Diastolic blood pressure 85 mm[Hg] 85 mm[Hg] eCW1 ([facility]) Body weight 302 [lb_av] 302 [lb_av] eCW1 ([facility]) Body weight 291 [lb_av] 291 [lb_av] eCW1 ([facility]) Body height 72 [in_i] 72 [in_i] eCW1 ([facility]) Body mass index (BMI) [Ratio] 39.46 kg/m2 39.46 kg/m2 eCW1 ([facility]) Heart rate 90 /min 90 /min eCW1 ([facility]) Respiratory rate 18 /min 18 /min eCW1 ([facility]) Body temperature 98 [degF] 98 [degF] eCW1 ([facility]) Systolic blood pressure 130 mm[Hg] 130 mm[Hg] e CW1 ([facility]) Diastolic blood pressure 82 mm[Hg] 82 mm[Hg] eCW1 [facility]) Respiratory rate 15 /min 15 /min MEDENT ( [facility]) Systolic blood pressure 137 mm[Hg] 137 mm[Hg] M EDENT ([facility], [facility]) Diastolic blood pressure 89 mm[Hg] 89 mm[Hg] MEDENT ([facility]) Heart rate 87 /min 87 /min MEDENT ([facility], [facility]) Body height 72 [in_i] 72 [in_i] MEDENT ([facility], [facility]) 6'0" Body mass index (BMI) [Ratio] 38.0 kg/m2 38.0 k g/m2 MEDENT ([facility]) Oxygen saturation in Arterial blood by Pulse oximetry 95 % 95 % [facility] Body temperature 98.7 [degF] 98.7 [degF] MEDENT ([facility]) Body weight 280.00 [lb_av] 280.00 [lb_av] MEDEN T ([facility]) Patient Treatment Plan of Care Planned Activity Planned Date Details Description Data Source (s) Lisinopril 40 MG Oral Tablet 01/11/2021 12:00:00 AM EDT [facility]) Lisinopril 40 MG Oral Tablet 01/11/2021 12:00:00 AM EDT eCW1 ([facility]) Lisinopril 40 MG Oral Tablet 01/11/2021 12:00:00 AM EDT eCW1 [facility])
--- OUTSIDE RECORDS SUMMARY | 2021-05-12 01:09 | CCD | Continuity of Care Document ---
Author Author Jonah [place] Organization Unknown Address [address] [place] [address] [place] [address] Phone [phone] Care Team Providers [employer] Truck Driver Name Role Phone Krystle CalvoM [phone] Problems Description No Information Available Social History [...] Available Procedures Date Code Description Status 11/14/2020 82174 Office/Outpatient New Low MDM 30 -44 Minutes Completed Medical Devices Description No Information Available Encounters Type Date Location Provider Dx Diagnosis Office Visit 11/14/2020 5:05p Main Office Aurelio Hou, P.A. S2 0.221A Contusion of right back wall of thorax, initial encounter Assessments Date Code Description Provider 11/14/2020 S20.221A Contusion of right back wall of thorax, initial encounter Jluis Fishman Plan of Treatment No Information Available Functional Status Description No Information Available Mental Status Description No Information Available Referrals Description No Information Available
[2021-05-12] MEDS ORDERED: GI COCKTAIL 50ML BTL(HYOSCYAMINE/MAALOX/LIDOCAINE VISCOUS)(1:3:1) PO ONE (01:40)
[2021-05-12 01:58] LABS: BASO # 0.1 10^3/uL (0.0-0.2); BASO % 0.6 % (0.0-1.0); EOS # 0.4 10^3/uL (0.0-0.5); EOS % 3.6 % (0.0-3.0); HEMATOCRIT 44.8 % (42.0-52.0); HEMOGLOBIN 14.6 g/dl (13.5-17.5); LYMPH # 3.1 10^3/uL (1.5-5.0); LYMPH % 25.9 % (24.0-44.0); MEAN CORPUSCULAR HEMOGLOBIN 29.1 pg (27.0-33.0); MEAN CORPUSCULAR HGB CONC 32.6 g/dl (32.0-36.5); MEAN CORPUSCULAR VOLUME 89.4 fl (80.0-96.0); MONO # 0.8 10^3/uL (0.0-0.8); MONO % 6.9 % (2.0-8.0); NEUTROPHILS # 7.6 10^3/uL (1.5-8.5); NEUTROPHILS % 62.7 % (36.0-66.0); PLATELET COUNT, AUTOMATED 268 10^3/uL (150-450); RED BLOOD COUNT 5.01 10^6/uL (4.30-6.10); WHITE BLOOD COUNT 12.1 10^3/uL (4.0-10.0)
[2021-05-12 02:23] LABS: ALBUMIN 3.5 GM/DL (3.2-5.2); ALT/SGPT 146 U/L (12-78); BILIRUBIN,TOTAL 0.3 MG/DL (0.2-1.0); BLOOD UREA NITROGEN 11 MG/DL (7-18); CALCIUM LEVEL 8.5 MG/DL (8.5-10.1); CARBON DIOXIDE LEVEL 27 MEQ/L (21-32); CHLORIDE LEVEL 103 MEQ/L (98-107); CREATININE FOR GFR 0.85 MG/DL (0.70-1.30); GLOMERULAR FILTRATION RATE > 60.0 (>60); GLUCOSE, FASTING 130 MG/DL (70-100); LIPASE 116 U/L (73-393); MAGNESIUM LEVEL 2.3 MG/DL (1.8-2.4); POTASSIUM SERUM 4.4 MEQ/L (3.5-5.1); SODIUM LEVEL 136 MEQ/L (136-145)
[2021-05-12 02:25] LABS: CK-MB VALUE MASS 4.2 NG/ML (<3.6); MB/CK RELATIVE INDEX 1.41 (< OR =4)
[2021-05-12] MEDS ORDERED: ISOVUE-370 76% 100ML VIAL As Ordered ONE (02:56)
--- OUTSIDE RECORDS SUMMARY | 2021-05-12 03:06 | CCD ---
Author Author [facility] Organization [facility] Address Unknown Phone Unavailable Care Team Providers Care Sign Fabricator Name Role Phone SRI HOOKS PA Unavailable [...] is protected by Article 27-F of the [facility] Public Health law. If you continue you may have access to information: Regarding HIV / AIDS; Provided by facilities licensed or operated by the [facility] Office of Mental Health; or Provided by the [facility] Office for People With Developmental Disabilities. If such information is present, then the following [facility] mandated warning applies: This information has been [...] law may result in a fine or mcc sentence or both. A general authorization for the release of medical or other information is NOT sufficient authorization for further disc losure. Encounters Encounter Providers Location Date Indications Data Source(s ) [place] [address] [facility] [address] 03/25/2021 12:00:00 AM EDT eCW1 ([facility]) Outpatient [address] [facility] [address] 02/22/2021 12:00:00 AM EDT eCW1 ([facility]) [place] [address] [facility] [address] 02/13/2021 12:00:00 AM EDT eCW1 ([facility]) [place] [address] [facility] [address] 02/07/2021 12:00:00 AM EDT eCW1 ([facility]) [place] [address] [facility] [address] 01/11/2021 12:00:00 AM EDT eCW1 ([facility]) [place] [address] [facility] [address] 12/31/2020 12:00:00 AM EDT eCW1 ([facility]) [place] [address] [facility] [address] 12/19/2020 12:00:00 AM EDT eCW1 ([facility]) [place] [address] [facility] [address] 11/23/2020 12:00:00 AM EDT eCW1 ([facility]) [place] [address] [facility] [address] 11/21/2020 12:00:00 AM EDT eCW1 ([facility]) [place] [address] [facility] [place] [address] 11/15/2020 12:00:00 AM EDT eCW1 [facility] Outpatient Attender: SRI rodriguez 11/14/2020 05:05:00 PM EDT MEDENT ([facility]) [place] [address] [facility] [place] [address] 08/30/2020 12:00:00 AM EDT eCW1 ([facility]) [place] [address] [facility] [place] [address] 06/29/2020 12:00:00 AM EST eCW1 ([facility]) [place] [address] [facility] [address] 05/30/2020 12:00:00 AM EST eCW1 ([facility]) [place] [address] [facility] [address] 04/11/2020 12:00:00 AM EST eCW1 ([facility]) [facility] [address] [facility] [address] 03/27/2020 12:00:00 AM EDT eCW1 ([facility]) Immunizations Vaccine Date Status Description Data Source(s) COVID-19 dose #2 given elsewhere Unspecified 02/22/2021 10:2 7:00 AM EDT completed eCW1 ([facility]) COVID-19 dose #2 given elsewhere Unspecified 02/22/2021 10:2 7:00 AM EDT completed eCW1 ([facility]) COVID-19 dose #1 given elsewhere Unspecified 02/22/2021 10:2 6:00 AM EDT completed eCW1 ([facility]) COVID-19 dose #1 given elsewhere Unspecified 02/22/2021 10:2 6:00 AM EDT completed eCW1 ([facility]) Medications Medication Brand Name Start Date Product Form Dose Route Admi nistrative Instructions Pharmacy Instructions Status Indications Reaction Description Data Source(s) Lisinopril 40 MG Oral Tablet Lisinopril 40 MG 01/11/2021 12:00:00 A M EDT 1.0 {tablet} active Lisinopril 40 MG eCW1 ( [facility]) Lisinopril 40 MG Oral Tablet Lisinopril 40 MG 01/11/2021 12:00:00 A M EDT 1.0 {tablet} active Lisinopril 40 MG eCW1 ( [facility]) Lisinopril 40 MG Oral Tablet Lisinopril 40 MG 01/11/2021 12:00:00 A M EDT 1.0 {tablet} active Lisinopril 40 MG eCW1 ( [facility]) Insurance Providers Payer name Policy type / Coverage type Policy ID Covered republican ID Covered republican's relationship to leahy Policy [place] Plan Information [employer] [place] [id number] WI2 [id number] [employer] [place] [id number] SP [id number] [employer] [place] [id number] HU2 [id number] [employer] [place] [id number] WI2 [id number] [employer] [place] O [id number] S [id number] [employer] [place] [id number] SP [id number] SELF PAY UNAVAILABLE SP UNAVAILA BLE [facility] [employer] [id number] SP [id number] [facility] [employer] [id number] SP [id number] Problems, Conditions, and Diagnoses No Information Surgeries/Procedures Procedure Description Date Indications Data Source(s) OFFICE OUTPATIENT NEW 30 MINUTES 11/14/2020 12:00:00 A M EDT MEDENT ([facility], [facility]) Results ID Date Data Source [id number] 03/30/2021 12:00:00 AM EDT [facility] Name Value Range Interpretation Code Description Data Loretta rce(s) Supporting Document(s) SARS-CoV2 Rapid Antigen Positive [facility] This lab was reported by [facility]. Procedure Social History Code Duration Value Status Description Data Source(s ) Smoking 02/22/2021 12:00:00 AM EDT Former Smoker completed Former Smoker eCW1 ([facility]) Smoking 02/22/2021 12:00:00 AM EDT Former Smoker completed Former Smoker eCW1 ([facility]) Smoking 01/11/2021 12:00:00 AM EDT Former Smoker completed Former Smoker eCW1 ([facility]) Smoking 01/11/2021 12:00:00 AM EDT Former Smoker completed Former Smoker eCW1 ([facility]) Smoking 01/11/2021 12:00:00 AM EDT Former Smoker completed Former Smoker eCW1 ([facility]) Smoking 11/23/2020 12:00:00 AM EDT Former Smoker completed Former Smoker eCW1 ([facility]) Smoking 11/23/2020 12:00:00 AM EDT Former Smoker completed Former Smoker eCW1 ([facility]) Smoking 11/23/2020 12:00:00 AM EDT Former Smoker completed Former Smoker eCW1 ([facility]) Vital Signs ID Date Data Source UNK Name Value Range Interpretation Code Description Data Source(s) Body weight 296 [lb_av] 296 [lb_av] eCW1 ([facility]) Body height 72 [in_i] 72 [in_i] eCW1 ([facility]) Body mass index (BMI) [Ratio] 40.14 kg/m2 40.14 kg/m2 eCW1 ([facility]) Heart rate 88 /min 88 /min eCW1 ([facility]) Respiratory rate 20 /min 20 /min eCW1 ([facility]) Body temperature 97.9 [degF] 97.9 [degF] eCW1 ( [facility]) Systolic blood pressure 110 mm[Hg] 110 mm[Hg] e CW1 ([facility]) Diastolic blood pressure 80 mm[Hg] 80 mm[Hg] eCW1 ([facility]) Body weight 302 [lb_av] 302 [lb_av] eCW1 ([facility]) Body height 72 [in_i] 72 [in_i] eCW1 ([facility]) Body mass index (BMI) [Ratio] 40.95 kg/m2 40.95 kg/m2 eCW1 ([facility]) Heart rate 79 /min 79 /min eCW1 ([facility]) Respiratory rate 18 /min 18 /min eCW1 ([facility]) Body temperature 97.9 [degF] 97.9 [degF] eCW1 ( [facility]) Systolic blood pressure 131 mm[Hg] 131 mm[Hg] e CW1 ([facility]) Diastolic blood pressure 85 mm[Hg] 85 mm[Hg] eCW1 ([facility]) Body weight 291 [lb_av] 291 [lb_av] eCW1 ([facility]) Body height 72 [in_i] 72 [in_i] eCW1 ([facility]) Body mass index (BMI) [Ratio] 39.46 kg/m2 39.46 kg/m2 eCW1 ([facility]) Heart rate 90 /min 90 /min eCW1 ([facility]) Respiratory rate 18 /min 18 /min eCW1 ([facility]) Body temperature 98 [degF] 98 [degF] eCW1 ([facility]) Systolic blood pressure 130 mm[Hg] 130 mm[Hg] e CW1 ([facility]) Diastolic blood pressure 82 mm[Hg] 82 mm[Hg] eCW1 ([facility]) Systolic blood pressure 137 mm[Hg] 137 mm[Hg] M EDENT ([facility], [facility]) Respiratory rate 15 /min 15 /min MEDENT ( [facility]) Oxygen saturation in Arterial blood by Pulse oximetry 95 % 95 % MEDENT ([facility]) Body temperature 98.7 [degF] 98.7 [degF] MEDENT ([facility]) Body height 72 [in_i] 72 [in_i] MEDENT ([facility]) 6'0" Body mass index (BMI) [Ratio] 38.0 kg/m2 38.0 k g/m2 MEDENT ([facility]) Diastolic blood pressure 89 mm[Hg] 89 mm[Hg] MEDENT ([facility], [facility]) Heart rate 87 /min 87 /min MEDENT ([facility]) Body weight 280.00 [lb_av] 280.00 [lb_av] MEDEN T ([facility]) Patient Treatment Plan of Care Planned Activity Planned Date Details Description Data Source (s) Lisinopril 40 MG Oral Tablet 01/11/2021 12:00:00 AM EDT eCW1 ([facility]) Lisinopril 40 MG Oral Tablet 01/11/2021 12:00:00 AM EDT eCW1 ([facility]) Lisinopril 40 MG Oral Tablet 01/11/2021 12:00:00 AM EDT eCW1 ([facility])
[2021-05-12] MEDS ORDERED: ONDANSETRON 4MG/2ML VIAL As Ordered ONE (03:19)
[2021-05-12] MEDS ORDERED: ONDANSETRON 4MG/2ML VIAL IV PRN (03:20)
--- NOTE | 2021-05-12 04:00 | REPVR ---
PROCEDURE INFORMATION: Exam: XR Chest Exam date and time: 05/12/2021 2:23 AM Age: 45 years old Clinical indication: Other: Chest pain TECHNIQUE: Imaging protocol: XR of the chest. Views: 1 view. COMPARISON: CR RIBS UNLATERAL WITH PA CHEST 11/15/2020 9:38 AM FINDINGS: Lungs: Unremarkable. No consolidation. Pleural spaces: Unremarkable. No pleural effusion. No pneumothorax. Heart/Mediastinum: Unremarkable. No cardiomegaly. Bones/joints: Unremarkable. IMPRESSION: No acute findings. Electronically signed by: Dayanara Mann On 05/12/2021 03:59:29 AM
[2021-05-12] MEDS ORDERED: NS 1,000 ML IV ONE (04:05)
--- NOTE | 2021-05-12 04:07 | REPVR ---
PROCEDURE INFORMATION: Exam: CTA Chest With Contrast Exam date and time: 05/12/2021 3:15 AM Age: 45 years old Clinical indication: Pain; Other: Epigastric; Additional info: Rule out pe TECHNIQUE: Imaging protocol: Computed tomographic angiography of the chest with contrast. 3D rendering (Not supervised by radiologist): MIP and/or 3D reconstructed images were created by the technologist. Radiation optimization: All CT scans at this facility use at least one of these dose optimization techniques: automated exposure control; mA and/or kV adjustment per patient size (includes targeted exams where dose is matched to clinical indication); or iterative reconstruction. Contrast material: ISOVUE 370; Contrast volume: 100 ml; Contrast route: INTRAVENOUS (IV); COMPARISON: CR Chest, 1 view 05/12/2021 2:14 AM FINDINGS: Pulmonary arteries: The pulmonary arteries are not enlarged. No filling defects are seen to indicate an acute pulmonary embolism. Assessment of the smaller branches is limited in some locations due to motion artifact. Aorta: There is no thoracic aortic aneurysm or evidence of dissection. Lungs: Lung volumes are shallow with crowding of bronchovascular structures and mild heterogeneous ground-glass attenuation of the lungs toward the lung bases, probably due to incomplete expansion. There is a band of opacity consistent with platelike atelectasis in the right lower lobe. Pleural spaces: No pleural effusions or pneumothorax identified. Heart: The heart is normal in size. Lymph nodes: No lymphadenopathy is seen in the chest. A few mildly enlarged lymph nodes are seen in the periportal region. Liver: There is a heterogeneous decrease in hepatic parenchymal density in the visualized liver, consistent with fatty infiltration. Gallbladder and bile ducts: Gallstones are present. The gallbladder was not fully included in the field of view. Bones/joints: No suspicious osseous lesions. No acute fractures. Soft tissues: Unremarkable. IMPRESSION: 1. Low lung volumes with platelike atelectasis in the right lower lobe and heterogeneous ground-glass attenuation of both lungs toward the bases, probably due to incomplete expansion. 2. No evidence of acute pulmonary embolism. Assessment is limited by motion artifact in some locations. 3. Fatty liver, cholelithiasis, and several mildly enlarged lymph nodes in the periportal region, but the liver and gallbladder were only partially included on this exam. Electronically signed by: Dayanara Mann On 05/12/2021 04:06:55 AM
--- NOTE | 2021-05-12 04:46 | REPVR ---
PROCEDURE INFORMATION: Exam: CT Abdomen And Pelvis Without Contrast Exam date and time: 05/12/2021 4:09 AM Age: 45 years old Clinical indication: Nausea; Abdominal pain; Epigastric; Additional info: Nausea, emesis and epigstaric pain TECHNIQUE: Imaging protocol: Computed tomography of the abdomen and pelvis without contrast. Radiation optimization: All CT scans at this facility use at least one of these dose optimization techniques: automated exposure control; mA and/or kV adjustment per patient size (includes targeted exams where dose is matched to clinical indication); or iterative reconstruction. COMPARISON: CT ANGIO CHEST 05/12/2021 2:57 AM FINDINGS: Lungs: There is atelectasis in the right lower lobe. There is a 4 x 2 mm nodule in the right middle lobe. Liver: There is a heterogeneous decrease in hepatic parenchymal density, consistent with fatty infiltration. Gallbladder and bile ducts: There are several gallstones which contain gas.There is no significant gallbladder wall thickening or adjacent inflammatory changes. There is no biliary ductal dilation. Pancreas: There is diffuse, benign fatty infiltration of the pancreas. Spleen: The spleen is normal. Adrenal glands: The adrenal glands are normal. Kidneys and ureters: There is residual contrast in the kidneys, ureters, bladder, related to the prior CTA of the chest. There is a 13 mm simple cyst in the left kidney. No follow-up imaging is needed. No hydronephrosis. Stomach and bowel: The small bowel appears unremarkable. There is no dilation or thickening of the colon. Appendix: A normal appendix is identified. Intraperitoneal space: There is no evidence of free intraperitoneal or pelvic fluid. There is no free intraperitoneal air. Vasculature: No aortic aneurysm. Lymph nodes: There are several enlarged periportal lymph nodes, measuring up to 20 mm in short axis. Urinary bladder: The bladder is mostly collapsed. No bladder stones are identified. There is mild bladder wall thickening consistent with incomplete distension or cystitis. Reproductive: The prostate gland appears normal. Bones/joints: No suspicious osseous lesions. No acute fractures. Soft tissues: There is a small periumbilical hernia containing fat. IMPRESSION: 1. Fatty liver. 2. Cholelithiasis. No biliary ductal dilation or signs of acute cholecystitis. 3. Nonspecific periportal lymphadenopathy. 4. 4 x 2 mm right middle lobe nodule. For patients at low risk (minimal or absent history of smoking and of other known risk factors), no routine follow-up is indicated. For patients at high risk (history of smoking or of other known risk factors), consider optional CT Chest at 12 months. (Reference: Adelina) 5. Unremarkable appearance of the bowel. COMMENTS: Consistent with the [employer]'s Incidental Findings Committee white paper (J Am Leslie Radiol 2018): Any incidental renal lesion less than 1 cm or classified as too small to characterize, or any incidental cystic renal lesion characterized as simple-appearing, is likely benign. No follow-up imaging is recommended for these lesions per consensus recommendations based on imaging criteria. REFERENCES: Adelina Lin, et al. Guidelines for Management of Incidental Pulmonary Nodules Detected on CT Images: From the [employer] Society 2017. Radiology. 2017;284(1):228-243. Electronically signed by: Dayanara Mann On 05/12/2021 04:46:10 AM
[2021-05-12 05:23] VITALS: BP 146/80
[2021-05-12] MEDS ORDERED: PANTOPRAZOLE 40MG VIAL (C9113 PER 1) IV ONE (05:25)
[2021-05-12] MEDS ORDERED: SIMETHICONE 40MG/0.6ML DROPS 30ML PO ONE (05:25)
[2021-05-12] MEDS ORDERED: QC A PO (05:41)
[2021-05-12] MEDS ORDERED: ZOFR4TAB16 PO (05:41)
--- NOTE | 2021-05-12 07:43 | ED PDOC ---
Post-Departure Follow-Up reprt faxed to ludmila Calvo Sarah MD May 12, 2021 07:43
--- NOTE | 2021-05-12 17:23 | ECGEPIP ---
[facility] - ED Test Date: 2021-05-12 Pat Name: LEOLA FIELDS Department: Room: - Gender: Male [employer]: : 1975 Requested By: SYDNI Belcher Order Number: [id number] Reading MD: Sun Porras Measurements Intervals [place] Rate: 64 P: 7 VT: 138 QRS: 17 QRSD: 100 T: 32 QT: 398 QTc: 410 Interpretive Statements Normal sinus rhythm No prior Electronically Signed on 05-12-2021 17:22:55 EST by Sun Porras
== END 2021-05-12 06:34 | disposition home or self-care (01) ==
LOC: M ED 01:02
DX: K52.9 Noninfective gastroenteritis and colitis, unspecified (principal); I10 Essential (primary) hypertension; E78.5 Hyperlipidemia, unspecified
CPT/HCPCS: 71045; 71275; 74176; 80053; 82550; 82553; 83690; 83735; 84484; 85025; 85379; 93005; 96361; 96374; 99284; C9113; J2405; Q9967

== ENCOUNTER → 2021-05-27 | Outpatient (CLI) | payer BC ==
[~2021-05-27] MED LIST: QC A PO; ZOFR4TAB16 PO
== END ==
LOC: M WUC 15:35
PROVIDERS: ATTEND Physician Assistant Medical
DX: K21.9 Gastro-esophageal reflux disease without esophagitis (principal)

== ENCOUNTER → 2021-05-30 | Outpatient (CLI) | payer BC ==
[2021-05-30 16:22] LABS: BASO # 0.1 10^3/uL (0.0-0.2); BASO % 0.7 % (0.0-1.0); EOS # 0.4 10^3/uL (0.0-0.5); EOS % 3.7 % (0.0-3.0); HEMATOCRIT 44.3 % (42.0-52.0); HEMOGLOBIN 14.4 g/dl (13.5-17.5); LYMPH % 29.8 % (24.0-44.0); MEAN CORPUSCULAR HEMOGLOBIN 29.4 pg (27.0-33.0); MEAN CORPUSCULAR HGB CONC 32.5 g/dl (32.0-36.5); MEAN CORPUSCULAR VOLUME 90.4 fl (80.0-96.0); MONO # 0.7 10^3/uL (0.0-0.8); MONO % 6.6 % (2.0-8.0); NEUTROPHILS % 58.8 % (36.0-66.0); PLATELET COUNT, AUTOMATED 295 10^3/uL (150-450); WHITE BLOOD COUNT 10.1 10^3/uL (4.0-10.0)
[2021-05-30 16:42] LABS: ALBUMIN 3.5 GM/DL (3.2-5.2); ALT/SGPT 139 U/L (12-78); BILIRUBIN,TOTAL 0.2 MG/DL (0.2-1.0); BLOOD UREA NITROGEN 12 MG/DL (7-18); CALCIUM LEVEL 8.7 MG/DL (8.5-10.1); CARBON DIOXIDE LEVEL 30 MEQ/L (21-32); CHLORIDE LEVEL 103 MEQ/L (98-107); CREATININE FOR GFR 0.68 MG/DL (0.70-1.30); GLOMERULAR FILTRATION RATE > 60.0 (>60); GLUCOSE, FASTING 104 MG/DL (70-100); NT-PRO BNP 88 PG/ML (<125); POTASSIUM SERUM 4.5 MEQ/L (3.5-5.1); SODIUM LEVEL 138 MEQ/L (136-145)
== END ==
LOC: M WUC 14:20
PROVIDERS: ATTEND Physician Assistant Medical
DX: K21.9 Gastro-esophageal reflux disease without esophagitis (principal); I10 Essential (primary) hypertension
CPT/HCPCS: 36415; 80053; 83880; 85025; G0103

== ENCOUNTER → 2021-06-11 | Outpatient (CLI) | payer BC ==
--- NOTE | 2021-06-12 15:07 | SLEEPHOME ---
DATE: 06/11/2021 ORDERED BY: ABHINAV FLOWERS MD Diagnostic home sleep testing was performed due to concern for the obstructive sleep apnea syndrome. For testing, A NOX T3 respiratory monitoring device was used. Continuous record was made of pulse, oxygen saturation, air flow, chest and abdominal strain and body position. Nine hours and 59 minutes of data were reviewed, there were 8 hours and 1 minute marked as time in bed. During the interval marked time in bed there were 455 respiratory events identified of 10 seconds in duration or greater for a respiratory event index of 56.7. The events were primarily obstructive, there were 24 mixed and central apneas, baseline pulse rate 61, pulse rate range 48 to 95, baseline saturation 93%, saturations fell to 82% and testing was performed in both the supine and non-supine positions. IMPRESSION: Abnormal home sleep testing with repetitive respiratory events and oxygen desaturations to 82% with a respiratory event index of 56.7 is consistent with the obstructive sleep apnea syndrome. RECOMMENDATION: The patient should be encouraged to undergo formal sleep evaluation.
== END ==
LOC: M SLEEP HO 14:55
PROVIDERS: ATTEND Family Medicine
DX: G47.33 Obstructive sleep apnea (adult) (pediatric) (principal)

== ENCOUNTER → 2021-07-12 | Outpatient (CLI) | payer BC ==
[2021-07-12 19:40] LABS: BASO # 0.1 10^3/uL (0.0-0.2); BASO % 0.6 % (0.0-1.0); EOS # 0.4 10^3/uL (0.0-0.5); EOS % 3.4 % (0.0-3.0); HEMATOCRIT 45.1 % (42.0-52.0); HEMOGLOBIN 14.3 g/dl (13.5-17.5); LYMPH # 3.8 10^3/uL (1.5-5.0); MEAN CORPUSCULAR HGB CONC 31.7 g/dl (32.0-36.5); MEAN CORPUSCULAR VOLUME 91.5 fl (80.0-96.0); MONO % 7.8 % (2.0-8.0); NEUTROPHILS # 6.9 10^3/uL (1.5-8.5); PLATELET COUNT, AUTOMATED 285 10^3/uL (150-450); RED BLOOD COUNT 4.93 10^6/uL (4.30-6.10); WHITE BLOOD COUNT 12.2 10^3/uL (4.0-10.0)
[2021-07-12 20:11] LABS: ALBUMIN 3.7 GM/DL (3.2-5.2); ALT/SGPT 155 U/L (12-78); BILIRUBIN,TOTAL 0.3 MG/DL (0.2-1.0); BLOOD UREA NITROGEN 9 MG/DL (7-18); CALCIUM LEVEL 8.4 MG/DL (8.5-10.1); CARBON DIOXIDE LEVEL 30 MEQ/L (21-32); CHLORIDE LEVEL 102 MEQ/L (98-107); CREATININE FOR GFR 0.75 MG/DL (0.70-1.30); GLOMERULAR FILTRATION RATE > 60.0 (>60); GLUCOSE, FASTING 89 MG/DL (70-100); NT-PRO BNP 50 PG/ML (<125); POTASSIUM SERUM 4.2 MEQ/L (3.5-5.1); SODIUM LEVEL 138 MEQ/L (136-145); TOTAL PROTEIN 7.2 GM/DL (6.4-8.2)
== END ==
LOC: M WUC 15:43
PROVIDERS: ATTEND Physician Assistant Medical
DX: I10 Essential (primary) hypertension (principal)
CPT/HCPCS: 36415; 80053; 83880; 85025; G0103

== ENCOUNTER → 2021-08-31 | Outpatient (CLI) | payer BC | LOC: M SLEEP 20:00 | PROVIDERS: ATTEND Physician Assistant | DX: G47.33 Obstructive sleep apnea (adult) (pediatric) (principal) ==

== ENCOUNTER → 2021-09-27 | Outpatient (CLI) | payer BC ==
[2021-09-27 13:46] LABS: INR 0.99; PROTHROMBIN TIME 13.5 SECONDS (12.7-14.5)
[2021-09-27 13:47] LABS: PARTIAL THROMBOPLASTIN TIME 31.5 SECONDS (25.9-37.0)
[2021-09-28 20:12] LABS: ANA (HEP2) Positive (.); ANTI-MITOCHONDRIAL ANTIBODY <20.0 Units (0.0-20.0); H PYLORI SERUM QUANT IGA <9.0 units (0.0-8.9); H PYLORI SERUM QUANT IGM <9.0 units (0.0-8.9)
== END ==
LOC: M PLALAB 08:57
PROVIDERS: ATTEND Physician Assistant Medical
DX: K21.9 Gastro-esophageal reflux disease without esophagitis (principal); K76.0 Fatty (change of) liver, not elsewhere classified

== ENCOUNTER → 2021-09-27 | Outpatient (CLI) | payer BC | LOC: M WHC 09:02 | PROVIDERS: ATTEND Physician Assistant Medical | DX: K76.0 Fatty (change of) liver, not elsewhere classified (principal) ==

== ENCOUNTER → 2021-10-11 | Outpatient (CLI) | payer BC ==
[~2021-10-11] MED LIST changes: +ACID1TAB8 PO; +ATEN25TA PO; +EZET10TA21 PO; +LISI20TA33 PO; +PANT40TA29 PO; -QC A PO; +SUCR1TAB56 PO
== END ==
LOC: M LABSMTC 09:36
PROVIDERS: ATTEND Anesthesiology
DX: Z01.812 Encounter for preprocedural laboratory examination (principal); Z20.822 Contact with and (suspected) exposure to COVID-19

== ENCOUNTER 2021-10-16 06:50 | Day surgery (SDC) | payer BC ==
[~2021-10-16] VITALS: Ht 182.9 cm; Wt 134.7 kg
[~2021-10-16 06:50] MED LIST changes: +NS 1,000 ML IV ONE
[2021-10-16] MEDS ORDERED: fentaNYL 100 MCG/2 ML INJECTION As Ordered ONE (07:38)
[2021-10-16] MEDS ORDERED: propofoL 200 MG/20 ML VIAL As Ordered ONE ×2 (07:38→08:23)
[2021-10-16] MEDS ORDERED: LIDOCAINE 2% 100MG/5ML SDV (FOR ANES.) As Ordered ONE (07:38)
[2021-10-16 08:58] VITALS: BP 148/62
== END 2021-10-16 08:59 | disposition home or self-care (01) ==
LOC: M OPP 06:50
PROVIDERS: ATTEND Surgery
DX: Z12.11 Encounter for screening for malignant neoplasm of colon (principal); D12.5 Benign neoplasm of sigmoid colon; K64.1 Second degree hemorrhoids; K29.70 Gastritis, unspecified, without bleeding
CPT/HCPCS: 43239; 45380; 88305; J3010

== ENCOUNTER → 2021-11-19 | Outpatient (CLI) | payer BC ==
[~2021-11-19] MED LIST changes: +ISOVUE-370 76% 100ML VIAL As Ordered ONE; -NS 1,000 ML IV ONE
== END ==
LOC: M RAD 08:07
PROVIDERS: ATTEND Family Medicine
DX: R91.1 Solitary pulmonary nodule (principal); K76.0 Fatty (change of) liver, not elsewhere classified; K80.20 Calculus of gallbladder without cholecystitis without obstruction; K76.89 Other specified diseases of liver
CPT/HCPCS: 71260; Q9967

== ENCOUNTER → 2022-05-27 | Outpatient (CLI) | payer BC ==
[~2022-05-27] MED LIST changes: -ISOVUE-370 76% 100ML VIAL As Ordered ONE
[2022-05-27 14:58] LABS: BASO # 0.1 10^3/uL (0.0-0.2); BASO % 0.5 % (0.0-1.0); EOS # 0.4 10^3/uL (0.0-0.5); EOS % 4.4 % (0.0-3.0); HEMATOCRIT 44.9 % (42.0-52.0); HEMOGLOBIN 14.5 g/dl (13.5-17.5); IRON (FE) 98 UG/DL (65-175); LYMPH # 2.8 10^3/uL (1.5-5.0); LYMPH % 29.7 % (24.0-44.0); MEAN CORPUSCULAR HEMOGLOBIN 29.2 pg (27.0-33.0); MEAN CORPUSCULAR HGB CONC 32.3 g/dl (32.0-36.5); MEAN CORPUSCULAR VOLUME 90.5 fl (80.0-96.0); MONO # 0.6 10^3/uL (0.0-0.8); MONO % 6.1 % (2.0-8.0); NEUTROPHILS # 5.5 10^3/uL (1.5-8.5); NEUTROPHILS % 58.8 % (36.0-66.0); PLATELET COUNT, AUTOMATED 284 10^3/uL (150-450); RED BLOOD COUNT 4.96 10^6/uL (4.30-6.10); WHITE BLOOD COUNT 9.5 10^3/uL (4.0-10.0)
[2022-05-27 14:59] LABS: ALBUMIN 3.6 G/DL (3.2-5.2); ALKALINE PHOSPHATASE 90 U/L (46-116); ALT/SGPT 134 U/L (7.0-40); AST/SGOT 68 U/L (<34); BILIRUBIN,TOTAL 0.6 MG/DL (0.3-1.2); BLOOD UREA NITROGEN 9 MG/DL (9-23); CARBON DIOXIDE LEVEL 31 MMOL/L (20-31); CHLORIDE LEVEL 103 MMOL/L (98-107); CHOLESTEROL LEVEL 159 MG/DL (<200); CREATININE FOR GFR 0.76 MG/DL (0.70-1.30); GLOMERULAR FILTRATION RATE > 60.0 (>60); GLUCOSE, FASTING 89 MG/DL (60-100); HDL CHOLESTEROL 36.1 MG/DL (>40); LDL CHOLESTEROL 103.7 MG/DL (<100); NON-HDL-C 123 MG/DL; POTASSIUM SERUM 4.7 MMOL/L (3.5-5.1); SODIUM LEVEL 140 MMOL/L (136-145); TOTAL PROTEIN 6.7 G/DL (5.7-8.2); TRIGLYCERIDES LEVEL 96 MG/DL (<150)
[2022-05-27 15:03] LABS: FERRITIN 359.3 NG/ML (10.5-307.3)
[2022-05-27 15:47] LABS: HEMOGLOBIN A1c 5.7 % (4.0-6.0)
== END ==
LOC: M PLALAB 11:33
PROVIDERS: ATTEND Physician Assistant Medical
DX: Z12.5 Encounter for screening for malignant neoplasm of prostate (principal)

== ENCOUNTER → 2022-06-13 | Outpatient (CLI) | payer BC ==
[~2022-06-13] MED LIST changes: +ISOVUE-370 76% 100ML VIAL As Ordered ONE
== END ==
LOC: M RAD 14:09
PROVIDERS: ATTEND Physician Assistant Medical
DX: R91.1 Solitary pulmonary nodule (principal)

== ENCOUNTER → 2022-06-20 | Outpatient (CLI) | payer BC ==
[~2022-06-20] MED LIST changes: +E-Z-PAQUE 96% w/w SUSP 176GM BTL As Ordered ONE; -ISOVUE-370 76% 100ML VIAL As Ordered ONE
== END ==
LOC: M RAD 08:15
PROVIDERS: ATTEND Physician Assistant Medical
DX: K92.1 Melena (principal)

== ENCOUNTER → 2022-07-09 | Outpatient (CLI) | payer BC ==
[~2022-07-09] MED LIST changes: -E-Z-PAQUE 96% w/w SUSP 176GM BTL As Ordered ONE
[2022-07-09 12:10] LABS: BASO # 0.1 10^3/uL (0.0-0.2); BASO % 0.6 % (0.0-1.0); EOS # 0.3 10^3/uL (0.0-0.5); EOS % 2.3 % (0.0-3.0); HEMATOCRIT 42.6 % (42.0-52.0); LYMPH # 2.6 10^3/uL (1.5-5.0); LYMPH % 24.7 % (24.0-44.0); MEAN CORPUSCULAR HEMOGLOBIN 29.2 pg (27.0-33.0); MEAN CORPUSCULAR HGB CONC 32.9 g/dl (32.0-36.5); MEAN CORPUSCULAR VOLUME 88.9 fl (80.0-96.0); MONO # 0.8 10^3/uL (0.0-0.8); MONO % 7.3 % (2.0-8.0); NEUTROPHILS # 6.9 10^3/uL (1.5-8.5); NEUTROPHILS % 64.8 % (36.0-66.0); PLATELET COUNT, AUTOMATED 298 10^3/uL (150-450); RED BLOOD COUNT 4.79 10^6/uL (4.30-6.10); WHITE BLOOD COUNT 10.7 10^3/uL (4.0-10.0)
[2022-07-09 12:45] LABS: LIPASE 50 U/L (12-53)
[2022-07-09 12:48] LABS: ALBUMIN 3.5 G/DL (3.2-5.2); ALKALINE PHOSPHATASE 83 U/L (46-116); ALT/SGPT 149 U/L (7.0-40); AST/SGOT 75 U/L (<34); BILIRUBIN,TOTAL 0.7 MG/DL (0.3-1.2); BLOOD UREA NITROGEN 8 MG/DL (9-23); CALCIUM LEVEL 8.8 MG/DL (8.5-10.1); CARBON DIOXIDE LEVEL 28 MMOL/L (20-31); CHLORIDE LEVEL 103 MMOL/L (98-107); CREATININE FOR GFR 0.81 MG/DL (0.70-1.30); GLOMERULAR FILTRATION RATE > 60.0 (>60); GLUCOSE, FASTING 92 MG/DL (60-100); POTASSIUM SERUM 4.4 MMOL/L (3.5-5.1); SODIUM LEVEL 138 MMOL/L (136-145); TOTAL PROTEIN 6.8 G/DL (5.7-8.2)
== END ==
LOC: M LAB 10:34 → M PLALAB 10:34
PROVIDERS: ATTEND Physician Assistant Medical
DX: K56.600 Partial intestinal obstruction, unspecified as to cause (principal)

== ENCOUNTER → 2022-07-09 | Outpatient (CLI) | payer BC ==
[~2022-07-09] MED LIST changes: +GASTROGRAFIN SOLUTION 30ML As Ordered ONE
== END ==
LOC: M RAD 11:07
PROVIDERS: ATTEND Physician Assistant Medical
DX: K56.609 Unspecified intestinal obstruction, unspecified as to partial versus complete obstruction (principal)

== ENCOUNTER → 2022-08-13 | Outpatient (CLI) | payer BC ==
[~2022-08-13] MED LIST changes: -GASTROGRAFIN SOLUTION 30ML As Ordered ONE
== END ==
LOC: M LABSMTC 07:39
PROVIDERS: ATTEND Anesthesiology
DX: Z01.818 Encounter for other preprocedural examination (principal); Z11.52 Encounter for screening for COVID-19

== ENCOUNTER 2022-08-14 09:01 | Day surgery (SDC) | payer BC ==
[~2022-08-14] VITALS: Ht 182.9 cm; Wt 134.7 kg
[2022-08-14] MEDS ORDERED: LR 1,000 ML IV SCH ×2 (09:40→12:40)
[2022-08-14] MEDS ORDERED: propofoL 200 MG/20 ML VIAL As Ordered ONE (10:08)
[2022-08-14] MEDS ORDERED: SUGAMMADEX SODIUM 500 MG/5 ML VIAL (BRIDION) As Ordered ONE (10:08)
[2022-08-14] MEDS ORDERED: KETOROLAC 60MG 2ML VIAL As Ordered ONE (10:08)
[2022-08-14] MEDS ORDERED: ROCURONIUM BROMIDE 50MG/5ML VIAL As Ordered ONE ×2 (10:08→12:17)
[2022-08-14] MEDS ORDERED: LIDOCAINE 2% 100MG/5ML SDV (FOR ANES.) As Ordered ONE (10:08)
[2022-08-14] MEDS ORDERED: ONDANSETRON 4MG 2ML VIAL As Ordered ONE (10:08)
[2022-08-14] MEDS ORDERED: MIDAZOLAM INJ 2MG/2ML VIAL As Ordered ONE (10:12)
[2022-08-14] MEDS ORDERED: fentaNYL 100 MCG/2 ML INJECTION As Ordered ONE (10:12)
[2022-08-14] MEDS ORDERED: BUPIVACAINE/EPIN 0.25% 30ML VIAL As Ordered ONE (10:57)
[2022-08-14] MEDS ORDERED: ceFAZolin 1GM VIAL As Ordered ONE (11:00)
[2022-08-14] MEDS ORDERED: HYDROmorphone HCL 2MG/ML 1ML VIAL As Ordered ONE (11:37)
[2022-08-14] MEDS ORDERED: fentaNYL 100 MCG/2 ML INJECTION IV PRN (12:40)
[2022-08-14] MEDS ORDERED: oxyCODONE 5MG TAB PO PRN (12:40)
[2022-08-14] MEDS ORDERED: ONDANSETRON 4MG 2ML VIAL IV PRN (12:40)
[2022-08-14] MEDS ORDERED: HYDROMORPHONE HCL 0.5 MG/ 0.5 ML SYRINGE IV PRN (12:40)
[2022-08-14] MEDS ORDERED: NORCO, ANEXSIA 5/325MG TABLET (HYDROcodone/ACETAMINOPHEN) PO PRN (13:45)
[2022-08-14 14:33] VITALS: BP 118/62
== END 2022-08-14 14:39 | disposition home or self-care (01) ==
LOC: M SDC 09:01
PROVIDERS: ATTEND Surgery
DX: K81.9 Cholecystitis, unspecified (principal); K82.8 Other specified diseases of gallbladder; K83.8 Other specified diseases of biliary tract; I10 Essential (primary) hypertension; E78.5 Hyperlipidemia, unspecified; K21.9 Gastro-esophageal reflux disease without esophagitis; M19.90 Unspecified osteoarthritis, unspecified site; G47.30 Sleep apnea, unspecified; Z79.899 Other long term (current) drug therapy
CPT/HCPCS: 49321; 87070; 87076; 87205; 88305; J1100; J1170; J1885; J2250; J2405; J3010; S0020; S2900

== ENCOUNTER → 2022-08-20 | Outpatient (CLI) | payer BC ==
[~2022-08-20] MED LIST changes: +PROHANCE 279.3MG/ML 15ML VIAL As Ordered ONE; +PROHANCE 279.3MG/ML 5ML VIAL As Ordered ONE
== END ==
LOC: M RAD 08:39
PROVIDERS: ATTEND Surgery
DX: D37.6 Neoplasm of uncertain behavior of liver, gallbladder and bile ducts (principal)

== ENCOUNTER → 2023-01-16 | Outpatient (CLI) | payer BC ==
[~2023-01-16] MED LIST changes: -PROHANCE 279.3MG/ML 15ML VIAL As Ordered ONE; -PROHANCE 279.3MG/ML 5ML VIAL As Ordered ONE
== END ==
LOC: M PLARAD 09:03
PROVIDERS: ATTEND Psychiatry & Neurology Neurology
DX: G54.0 Brachial plexus disorders (principal); R20.2 Paresthesia of skin; M79.603 Pain in arm, unspecified

== ENCOUNTER → 2023-01-19 | Outpatient (CLI) | payer BC | LOC: M CARPUL 13:52 | PROVIDERS: ATTEND Physician Assistant Medical | DX: G47.33 Obstructive sleep apnea (adult) (pediatric) (principal) ==

== ENCOUNTER → 2023-08-24 | Outpatient (REF) | payer BC ==
[2023-08-24 09:58] LABS: BASO # 0.1 10^3/uL (0.0-0.2); BASO % 0.7 % (0.0-1.0); EOS # 0.5 10^3/uL (0.0-0.5); EOS % 5.1 % (0.0-3.0); HEMATOCRIT 44.6 % (42.0-52.0); HEMOGLOBIN 14.6 g/dl (13.5-17.5); LYMPH # 3.2 10^3/uL (1.5-5.0); LYMPH % 32.7 % (24.0-44.0); MEAN CORPUSCULAR HEMOGLOBIN 29.6 pg (27.0-33.0); MEAN CORPUSCULAR HGB CONC 32.7 g/dl (32.0-36.5); MEAN CORPUSCULAR VOLUME 90.5 fl (80.0-96.0); MONO # 0.6 10^3/uL (0.0-0.8); MONO % 6.5 % (2.0-8.0); NEUTROPHILS # 5.3 10^3/uL (1.5-8.5); NEUTROPHILS % 54.7 % (36.0-66.0); PLATELET COUNT, AUTOMATED 272 10^3/uL (150-450); RED BLOOD COUNT 4.93 10^6/uL (4.30-6.10); WHITE BLOOD COUNT 9.7 10^3/uL (4.0-10.0)
[2023-08-24 10:11] LABS: HEMOGLOBIN A1c 6.3 % (4.0-6.0)
[2023-08-24 10:23] LABS: ALBUMIN 3.5 G/DL (3.2-5.2); ALKALINE PHOSPHATASE 83 U/L (46-116); ALT/SGPT 106 U/L (7.0-40); AST/SGOT 53 U/L (<34); BILIRUBIN,TOTAL 0.6 MG/DL (0.3-1.2); BLOOD UREA NITROGEN 10 MG/DL (9-23); CARBON DIOXIDE LEVEL 30 MMOL/L (20-31); CHLORIDE LEVEL 105 MMOL/L (98-107); CREATININE FOR GFR 0.72 MG/DL (0.70-1.30); GLOMERULAR FILTRATION RATE > 60.0 (>60); GLUCOSE, FASTING 130 MG/DL (60-100); POTASSIUM SERUM 4.4 MMOL/L (3.5-5.1); SODIUM LEVEL 140 MMOL/L (136-145); TOTAL PROTEIN 6.5 G/DL (5.7-8.2)
== END ==
LOC: M LABWUC 09:10
PROVIDERS: ATTEND Physician Assistant Medical
DX: R73.01 Impaired fasting glucose (principal); K76.0 Fatty (change of) liver, not elsewhere classified; I10 Essential (primary) hypertension; K21.9 Gastro-esophageal reflux disease without esophagitis

== ENCOUNTER → 2023-09-10 | Outpatient (CLI) | payer BC | LOC: M RAD 09:15 | PROVIDERS: ATTEND Physician Assistant Medical | DX: K76.0 Fatty (change of) liver, not elsewhere classified (principal) ==

== ENCOUNTER → 2024-02-23 | Outpatient (CLI) | payer BC ==
[2024-02-23 12:48] LABS: BASO # 0.1 10^3/uL (0.0-0.2); BASO % 0.7 % (0.0-1.0); EOS # 0.3 10^3/uL (0.0-0.5); EOS % 3.8 % (0.0-3.0); HEMOGLOBIN 14.5 g/dl (13.5-17.5); LYMPH # 2.5 10^3/uL (1.5-5.0); LYMPH % 27.8 % (24.0-44.0); MEAN CORPUSCULAR HEMOGLOBIN 29.2 pg (27.0-33.0); MEAN CORPUSCULAR VOLUME 88.5 fl (80.0-96.0); MONO # 0.6 10^3/uL (0.0-0.8); MONO % 6.6 % (2.0-8.0); NEUTROPHILS # 5.5 10^3/uL (1.5-8.5); NEUTROPHILS % 60.9 % (36.0-66.0); PLATELET COUNT, AUTOMATED 258 10^3/uL (150-450); RED BLOOD COUNT 4.97 10^6/uL (4.30-6.10)
[2024-02-23 13:12] LABS: ALBUMIN 3.6 G/DL (3.2-5.2); ALKALINE PHOSPHATASE 87 U/L (46-116); ALT/SGPT 115 U/L (7.0-40); AST/SGOT 61 U/L (<34); BILIRUBIN,TOTAL 0.6 MG/DL (0.3-1.2); BLOOD UREA NITROGEN 10 MG/DL (9-23); CALCIUM LEVEL 9.2 MG/DL (8.5-10.1); CARBON DIOXIDE LEVEL 29 MMOL/L (20-31); CHLORIDE LEVEL 102 MMOL/L (98-107); CHOLESTEROL LEVEL 184 MG/DL (<200); CHOLESTEROL RISK RATIO 5.11 (<5); CREATININE FOR GFR 0.73 MG/DL (0.70-1.30); GLOMERULAR FILTRATION RATE > 60.0 (>60); GLUCOSE, FASTING 107 MG/DL (60-100); LDL CHOLESTEROL 127.8 MG/DL (<100); POTASSIUM SERUM 4.2 MMOL/L (3.5-5.1); SODIUM LEVEL 137 MMOL/L (136-145); TOTAL PROTEIN 7.1 G/DL (5.7-8.2); TRIGLYCERIDES LEVEL 101 MG/DL (<150)
[2024-02-23 14:03] LABS: HEMOGLOBIN A1c 6.2 % (4.0-6.0)
== END ==
LOC: M WUC 10:41
PROVIDERS: ATTEND Physician Assistant Medical
DX: K76.0 Fatty (change of) liver, not elsewhere classified (principal); R73.01 Impaired fasting glucose; I10 Essential (primary) hypertension; K21.9 Gastro-esophageal reflux disease without esophagitis; E78.2 Mixed hyperlipidemia

== ENCOUNTER → 2024-07-07 | Outpatient (CLI) | payer BC ==
[2024-07-07 14:04] LABS: PSA SCREENING 0.29 NG/ML (< 4.00)
[2024-07-07 14:06] LABS: ALBUMIN 3.6 G/DL (3.2-5.2); ALKALINE PHOSPHATASE 74 U/L (40-129); ALT/SGPT 79 U/L (7.0-40); AST/SGOT 46 U/L (<34); BILIRUBIN,TOTAL 0.6 MG/DL (0.3-1.2); BLOOD UREA NITROGEN 12 MG/DL (9-23); CALCIUM LEVEL 9.1 MG/DL (8.5-10.1); CARBON DIOXIDE LEVEL 30 MMOL/L (20-31); CHLORIDE LEVEL 105 MMOL/L (98-107); CREATININE FOR GFR 0.71 MG/DL (0.70-1.30); GLOMERULAR FILTRATION RATE > 60.0 (>60); GLUCOSE, FASTING 104 MG/DL (60-100); POTASSIUM SERUM 4.9 MMOL/L (3.5-5.1); SODIUM LEVEL 138 MMOL/L (136-145); TOTAL PROTEIN 7.2 G/DL (5.7-8.2)
[2024-07-07 14:08] LABS: HEPATITIS B SURFACE ANTIBODY NEGATIVE (POSITIVE)
[2024-07-07 14:19] LABS: HEPATITIS B SURFACE ANTIGEN NEGATIVE (NEGATIVE)
[2024-07-07 14:41] LABS: HEPATITIS C VIRUS ABY INDEX < 0.02 INDEX (<0.8)
[2024-07-09 15:17] LABS: HEPATITIS A IgG TOTAL REACTIVE (NON-REACTIVE)
== END ==
LOC: M PLAIMG 09:10
PROVIDERS: ATTEND Physician Assistant Medical
DX: M50.30 Other cervical disc degeneration, unspecified cervical region (principal); G62.9 Polyneuropathy, unspecified; Z12.5 Encounter for screening for malignant neoplasm of prostate
CPT/HCPCS: 36415; 72050; 80053; 82107; 86706; 86708; 86709; 86803; 87340; G0103

== ENCOUNTER → 2025-03-15 | Outpatient (CLI) | payer BC ==
[~2025-03-15] MED LIST changes: -EZET10TA21 PO; +EZET10TA57 PO
[2025-03-15 16:48] LABS: ESTIMATED AVERAGE GLUCOSE 123.0 MG/DL (60-110)
[2025-03-16 14:32] LABS: HEPATITIS A IgG TOTAL REACTIVE (NON-REACTIVE)
== END ==
LOC: M PLALAB 11:12
PROVIDERS: ATTEND Physician Assistant Medical
DX: K76.0 Fatty (change of) liver, not elsewhere classified (principal)

== ENCOUNTER → 2025-04-04 | Outpatient (CLI) | payer BC | LOC: M RAD 07:36 | PROVIDERS: ATTEND Physician Assistant Medical | DX: K75.81 Nonalcoholic steatohepatitis (NASH) (principal) ==